=== PATIENT | female | born 1975 | race Caucasian/White ===

== ENCOUNTER 2018-08-15 21:41 | Emergency (ER) | payer MEDICARE ==
[~2018-08-15] VITALS: Ht 165.1 cm; Wt 130.7 kg
[~2018-08-15 21:41] MED LIST: DIVA500T2 PO; OLAN10TA9 PO
[2018-08-15] MEDS ORDERED: KETOROLAC 30 MG/1 ML IVPush ONE (22:00)
[2018-08-15] MEDS ORDERED: MORPHINE SULFATE 4 MG/ML, 1ML IVPush PRN (22:00)
[2018-08-15] MEDS ORDERED: CLINDAMYCIN PMX 600MG/50ML 50 ML IV ONE (22:00)
[2018-08-15] MEDS ORDERED: SODIUM CHLORIDE FLUSH 10ML SYR IVF ONE (22:00)
[2018-08-15 22:24] LABS: BASOPHILS # (AUTO) 0.11 x10^3/uL (0-0.1); BASOPHILS % (AUTO) 1 % (0-1); EOSINOPHILS # (AUTO) 0.03 x10^3/uL (0-0.4); EOSINOPHILS % (AUTO) 0 % (1-7); LYMPHOCYTES # (AUTO) 2.22 x10^3/uL (1-3.4); LYMPHOCYTES % (AUTO) 27 % (22-44); MD NO; MEAN CORPUSCULAR HEMOGLOBIN 33.3 pg (27.0-34.8); MEAN CORPUSCULAR HGB CONC 34.5 g/dL (32.4-35.8); MEAN CORPUSCULAR VOLUME 96.4 fL (80-100); MEAN PLATELET VOLUME 8.6 fL (7.4-10.4); MONOCYTES # (AUTO) 0.85 x10^3/uL (0.2-0.8); MONOCYTES % (AUTO) 10 % (2-9); NEUTROPHILS # (AUTO) 4.92 x10^3/uL (1.8-6.8); NEUTROPHILS % (AUTO) 61 % (42-75); PLATELET COUNT 190 x10^3/uL (130-400); RED BLOOD COUNT 4.05 x10^6/uL (3.82-5.3); RED CELL DISTRIBUTION WIDTH 13.3 % (9.6-15.2)
[2018-08-15] MEDS ORDERED: MORPHINE SULFATE 4 MG/ML, 1ML ONE (22:26)
[2018-08-15] MEDS ORDERED: KETOROLAC 30 MG/1 ML ONE (22:26)
[2018-08-15] MEDS ORDERED: CLINDAMYCIN PMX 600MG/50ML 50 ML ONE (22:26)
[2018-08-15 22:34] LABS: ALBUMIN 3.2 g/dL (3.4-5.0); ANION GAP 10 mmol/L (5-15); CALCIUM 8.3 mg/dL (8.5-10.1); CHLORIDE 98 mmol/L (98-107); CREATININE 0.66 mg/dL (0.55-1.02)
[2018-08-15] MEDS ORDERED: SERT100T5 PO (22:44)
[2018-08-15] MEDS ORDERED: PROLIXIN (22:44)
[2018-08-15] MEDS ORDERED: [UNRECOGNIZED DRUG - CODE] EACH EAR (22:46)
[2018-08-15] MEDS ORDERED: OMNIPAQUE 350 MG/ML, 100ML BOTTLE ONE (23:02)
[2018-08-15] MEDS ORDERED: PROPOFOL 10 MG/ML, 20ML IVPush ONE (23:30)
[2018-08-15] MEDS ORDERED: PROPOFOL 10 MG/ML, 20ML ONE (23:41)
[2018-08-16 01:28] VITALS: BP 137/99
== END 2018-08-16 01:32 | disposition home or self-care (01) ==
LOC: ED 08-16 00:02
DX: L03.111 Cellulitis of right axilla (principal); L02.411 Cutaneous abscess of right axilla
CPT/HCPCS: 10060; 36415; 73201; 80048; 82040; 83605; 84145; 85025; 87040; 87070; 87205; 96365; 96366; 96375; 99152; 99285; J1885; J2704; Q9967; 87075

== ENCOUNTER 2018-09-11 10:21 | Emergency (ER) | payer SELFPAY ==
[~2018-09-11] VITALS: Ht 172.7 cm; Wt 91.0 kg
[~2018-09-11 10:21] MED LIST changes: +PROLIXIN; +SERT100T5 PO; +[UNRECOGNIZED DRUG - CODE] EACH EAR
[2018-09-11 10:37] VITALS: BP 150/103
[2018-09-11 11:04] LABS: BASOPHILS # (AUTO) 0.03 x10^3/uL (0-0.1); BASOPHILS % (AUTO) 0 % (0-1); EOSINOPHILS # (AUTO) 0.11 x10^3/uL (0-0.4); EOSINOPHILS % (AUTO) 2 % (1-7); LYMPHOCYTES # (AUTO) 2.02 x10^3/uL (1-3.4); LYMPHOCYTES % (AUTO) 33 % (22-44); MD NO; MEAN CORPUSCULAR HEMOGLOBIN 32.5 pg (27.0-34.8); MEAN CORPUSCULAR HGB CONC 33.6 g/dL (32.4-35.8); MEAN CORPUSCULAR VOLUME 96.9 fL (80-100); MEAN PLATELET VOLUME 8.3 fL (7.4-10.4); MONOCYTES # (AUTO) 0.41 x10^3/uL (0.2-0.8); MONOCYTES % (AUTO) 7 % (2-9); NEUTROPHILS # (AUTO) 3.63 x10^3/uL (1.8-6.8); NEUTROPHILS % (AUTO) 59 % (42-75); PLATELET COUNT 217 x10^3/uL (130-400); RED BLOOD COUNT 4.89 x10^6/uL (3.82-5.3); RED CELL DISTRIBUTION WIDTH 14.2 % (9.6-15.2)
[2018-09-11 11:09] LABS: CULTURE INDICATED? YES; MICROSCOPIC INDICATED
[2018-09-11 11:16] LABS: ALANINE AMINOTRANSFERASE 17 U/L (12-78); ALBUMIN 3.4 g/dL (3.4-5.0); ANION GAP 8 mmol/L (5-15); CALCIUM 9.2 mg/dL (8.5-10.1); CHLORIDE 105 mmol/L (98-107); CREATININE 0.66 mg/dL (0.55-1.02)
[2018-09-11 11:20] LABS: ALKALINE PHOSPHATASE 66 U/L (45-117); BILIRUBIN,TOTAL 0.7 mg/dL (0.2-1.0); TOTAL PROTEIN 7.1 g/dL (6.4-8.2)
== END 2018-09-11 11:46 | disposition left against medical advice (07) ==
LOC: ED 11:40
DX: R10.30 Lower abdominal pain, unspecified (principal); F20.9 Schizophrenia, unspecified
CPT/HCPCS: 36415; 80053; 81001; 83690; 84702; 85025; 87086; 99284

== ENCOUNTER 2018-12-24 17:08 | Emergency (ER) | payer SELFPAY ==
[~2018-12-24] VITALS: Ht 170.2 cm; Wt 104.5 kg
[~2018-12-24 17:08] MED LIST changes: +SERT100T32 PO; -SERT100T5 PO
[2018-12-24 17:34] VITALS: BP 150/85
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
[2018-12-24] MEDS ORDERED: LURA40TA PO (18:05)
[2018-12-24] MEDS ORDERED: OLAN20TA3 PO ×2 (18:05)
--- NOTE | 2018-12-24 18:05 | NUR ---
Provided pt snacks and water and decaf black coffee per request. Pt appreciative.
[2018-12-24] MEDS ORDERED: OLANZAPINE 10 MG TABLET PO ONE (18:30)
[2018-12-24] MEDS ORDERED: LORazepam 1MG TABLET PO ONE (18:30)
[2018-12-24] MEDS ORDERED: OLANZAPINE 10 MG TABLET ONE ×2 (18:44)
[2018-12-24] MEDS ORDERED: LORazepam 1MG TABLET ONE (18:45)
[2018-12-24 19:08] LABS: HCG UR SG 1.006 (1.003-1.030); MICROSCOPIC AUTO
--- NOTE | 2018-12-24 19:10 | NUR ---
Provided report to LEAH Harris. All questions answered. NADN. No needs expressed at this time. All safety measures in place.
[2018-12-24 19:12] LABS: CULTURE INDICATED? YES
== END 2018-12-24 20:14 | disposition home or self-care (01) ==
LOC: ED 18:30
DX: N30.00 Acute cystitis without hematuria (principal); R30.0 Dysuria; F20.9 Schizophrenia, unspecified
CPT/HCPCS: 81001; 81025; 87086; 99283

== ENCOUNTER 2018-12-26 19:53 | Inpatient (IN) | payer MEDICARE, OTHER ==
[~2018-12-26] VITALS: Ht 167.6 cm; Wt 115.0 kg
[~2018-12-26 19:53] MED LIST changes: +LURA40TA PO; +OLAN20TA3 PO
[2018-12-26] MEDS ORDERED: LORazepam 1MG TABLET ONE (20:37)
--- NOTE | 2018-12-26 20:41 | NUR ---
PT MEDICATED PER eMAR
--- NOTE | 2018-12-26 20:48 | NUR ---
PT BROUGHT IN BY [employer], WAS FOUND SITTING IN FRONT OF SOMEONES DOOR SMOKING. PT UNABLE TO CARE FOR SELF AT THIS TIME. HX OF SCHIZOPHRENIA, NOT TAKING HER MEDS. STATES SHE IS 6 MONTHS , NO SIGNS OF NOTEDPT ASKED FOR URINE SAMPLE, STATES UNABLE TO GIVE AT THIS TIME
--- NOTE | 2018-12-26 20:52 | NUR ---
Patient is self pay and needs psych eval so telepsych consult initiated at this time.
[2018-12-26 20:53] LABS: BASOPHILS # (AUTO) 0.03 x10^3/uL (0-0.1); BASOPHILS % (AUTO) 0 % (0-1); EOSINOPHILS # (AUTO) 0.08 x10^3/uL (0-0.4); EOSINOPHILS % (AUTO) 1 % (1-7); LYMPHOCYTES # (AUTO) 1.75 x10^3/uL (1-3.4); LYMPHOCYTES % (AUTO) 14 % (22-44); MD NO; MEAN CORPUSCULAR HEMOGLOBIN 31.4 pg (27.0-34.8); MEAN CORPUSCULAR VOLUME 92.2 fL (80-100); MEAN PLATELET VOLUME 8.8 fL (7.4-10.4); MONOCYTES # (AUTO) 0.94 x10^3/uL (0.2-0.8); MONOCYTES % (AUTO) 8 % (2-9); NEUTROPHILS # (AUTO) 9.68 x10^3/uL (1.8-6.8); NEUTROPHILS % (AUTO) 78 % (42-75); PLATELET COUNT 257 x10^3/uL (130-400); RED BLOOD COUNT 4.84 x10^6/uL (3.82-5.3); RED CELL DISTRIBUTION WIDTH 16.4 % (9.6-15.2)
[2018-12-26] MEDS ORDERED: LORazepam 1MG TABLET PO ONE (21:00)
[2018-12-26 21:01] LABS: ALBUMIN 3.7 g/dL (3.4-5.0); ANION GAP 11 mmol/L (5-15); CALCIUM 9.2 mg/dL (8.5-10.1); CHLORIDE 102 mmol/L (98-107); SALICYLATE LEVEL 6.6 mg/dL (2.8-20.0)
[2018-12-26 21:04] LABS: ALANINE AMINOTRANSFERASE 16 U/L (12-78); ALKALINE PHOSPHATASE 92 U/L (45-117); BILIRUBIN,TOTAL 1.1 mg/dL (0.2-1.0); CREATININE 0.81 mg/dL (0.55-1.02); TOTAL PROTEIN 7.9 g/dL (6.4-8.2)
[2018-12-26 21:07] LABS: ACETAMINOPHEN < 2 mcg/mL (10-30)
--- NOTE | 2018-12-26 21:07 | NUR ---
TELEPSYCH MONITOR AT BS, PT STILL STATES UNABLE TO GIVEN URINE SAMPLE
[2018-12-26 21:16] LABS: CREATINE KINASE, TOTAL 1877 U/L (26-192)
[2018-12-26] MEDS ORDERED: SODIUM CHLORIDE 0.9% 1,000ML IVBOLUS ONE (21:30)
--- NOTE | 2018-12-26 21:43 | NUR ---
ATTEMPTED TO START IV ON PT. PT WAS INITIALLY CALM AND CONSENTED TO IV. WHILE LOOKING FOR AN IV SITE, THE PT ATTEMPTED TO HIT THIS RN.
--- NOTE | 2018-12-26 21:47 | NUR ---
BELONGINGS BAGGED AND LABELED, PLACED IN CLOSET
--- NOTE | 2018-12-26 21:48 | NUR ---
2 BAGS PLACED IN LOCKER.
[2018-12-26] MEDS: HEPARIN 5,000 UNITS/ML, 1ML SQ SCH (23:00)
[2018-12-26 23:22] LABS: TROPONIN I < 0.015 ng/mL (0.000-0.045)
[2018-12-27] MEDS ORDERED: LORazepam 2 MG/ML, 1ML IV PRN ×5
--- NOTE | 2018-12-27 00:01 | NUR ---
REPORT GIVEN TO BOYD LYNN FOR ROOM 360
[2018-12-27] MEDS: POTASSIUM CHLORIDE 20 MEQ, MAGNESIUM SULFATE 2 GM, THIAMINE 200 MG, MVI ADULT 10 ML, FO... IV SCH ×2 (01:44→17:26)
[2018-12-27 01:46] VITALS: BP 144/87
[2018-12-27 01:53] VITALS: BP 144/87
[2018-12-27 05:14] LABS: ANION GAP 8 mmol/L (5-15); CALCIUM 8.3 mg/dL (8.5-10.1); CHLORIDE 109 mmol/L (98-107)
[2018-12-27 05:21] LABS: CREATININE 0.55 mg/dL (0.55-1.02); TROPONIN I < 0.015 ng/mL (0.000-0.045)
[2018-12-27 05:38] LABS: BASOPHILS # (AUTO) 0.03 x10^3/uL (0-0.1); BASOPHILS % (AUTO) 0 % (0-1); EOSINOPHILS # (AUTO) 0.11 x10^3/uL (0-0.4); EOSINOPHILS % (AUTO) 1 % (1-7); LYMPHOCYTES % (AUTO) 19 % (22-44); MD NO; MEAN CORPUSCULAR HEMOGLOBIN 31.4 pg (27.0-34.8); MEAN CORPUSCULAR HGB CONC 33.7 g/dL (32.4-35.8); MEAN CORPUSCULAR VOLUME 93.2 fL (80-100); MEAN PLATELET VOLUME 9.2 fL (7.4-10.4); MONOCYTES # (AUTO) 0.75 x10^3/uL (0.2-0.8); MONOCYTES % (AUTO) 8 % (2-9); NEUTROPHILS # (AUTO) 6.32 x10^3/uL (1.8-6.8); NEUTROPHILS % (AUTO) 71 % (42-75); PLATELET COUNT 226 x10^3/uL (130-400); RED BLOOD COUNT 4.19 x10^6/uL (3.82-5.3); RED CELL DISTRIBUTION WIDTH 16.3 % (9.6-15.2)
[2018-12-27] MEDS: POTASSIUM CHLORIDE 40 MEQ in SODIUM CHLORIDE 0.9% 500 ML IV ONE ×2 (07:30→10:49)
[2018-12-27 08:00] VITALS: BP 113/61
[2018-12-27] MEDS: HEPARIN 5,000 UNITS/ML, 1ML SQ SCH ×2 (10:30→17:26)
[2018-12-27 14:00] VITALS: BP 122/75
[2018-12-27 20:10] VITALS: BP 111/65
[2018-12-28] MEDS: POTASSIUM CHLORIDE 20 MEQ, MAGNESIUM SULFATE 2 GM, THIAMINE 200 MG, MVI ADULT 10 ML, FO... IV SCH ×3 (02:16→19:58)
[2018-12-28] MEDS: HEPARIN 5,000 UNITS/ML, 1ML SQ SCH ×4 (02:30→19:58)
[2018-12-28 08:09] VITALS: BP 142/80
[2018-12-28 08:43] LABS: CULTURE INDICATED? YES; MICROSCOPIC INDICATED
[2018-12-28] MEDS: FOLIC ACID 1 MG TABLET PO SCH (09:00)
[2018-12-28] MEDS: THIAMINE 100MG TABLET PO SCH (09:00)
[2018-12-28 10:53] LABS: AMPHETAMINE SCREEN, URINE Negative (Negative); BARBITURATE SCREEN, URINE Negative (Negative); BENZODIAZEPINE SCREEN, URINE Negative (Negative); CANNABINOID SCREEN, URINE Negative (Negative); COCAINE SCREEN, URINE Negative (Negative); METHADONE SCREEN, URINE Negative (Negative); OPIATE SCREEN, URINE Negative (Negative)
[2018-12-28] MEDS: OLANZAPINE 10 MG INJ IM PRN (13:10)
[2018-12-28 19:17] VITALS: BP 114/72
[2018-12-28] MEDS: DIVALPROEX 500 MG TABLET.DR PO SCH (19:58)
[2018-12-28] MEDS: OLANZAPINE 10 MG TABLET PO SCH (19:58)
[2018-12-29] MEDS: OLANZAPINE 10 MG INJ IM PRN ×2 (02:54→14:42)
[2018-12-29] MEDS ORDERED: LORazepam 1MG TABLET PO ONE (03:30)
[2018-12-29] MEDS ORDERED: NICOTINE 21 MG/24 HR PATCH.TD24 TD ONE (03:30)
[2018-12-29] MEDS ORDERED: DIVA500T17 PO ×2 (04:51)
[2018-12-29] MEDS ORDERED: OMEP-110 PO (04:51)
[2018-12-29] MEDS ORDERED: LURA80TA PO (04:51)
[2018-12-29] MEDS ORDERED: SERT100T32 PO (04:51)
[2018-12-29] MEDS ORDERED: OLAN20TA7 PO (04:51)
[2018-12-29 07:55] VITALS: BP 119/75
[2018-12-29] MEDS: POTASSIUM CHLORIDE 20 MEQ, MAGNESIUM SULFATE 2 GM, THIAMINE 200 MG, MVI ADULT 10 ML, FO... IV SCH (08:40)
[2018-12-29] MEDS: THIAMINE 100MG TABLET PO SCH (08:59)
[2018-12-29] MEDS: FOLIC ACID 1 MG TABLET PO SCH (08:59)
[2018-12-29] MEDS: DIVALPROEX 500 MG TABLET.DR PO SCH ×2 (08:59→20:31)
[2018-12-29] MEDS: OLANZAPINE 10 MG TABLET PO SCH ×2 (09:00→20:31)
[2018-12-29 10:22] LABS: BASOPHILS # (AUTO) 0.04 x10^3/uL (0-0.1); BASOPHILS % (AUTO) 1 % (0-1); EOSINOPHILS % (AUTO) 2 % (1-7); LYMPHOCYTES # (AUTO) 1.75 x10^3/uL (1-3.4); LYMPHOCYTES % (AUTO) 30 % (22-44); MD NO; MEAN CORPUSCULAR HEMOGLOBIN 30.5 pg (27.0-34.8); MEAN CORPUSCULAR HGB CONC 32.8 g/dL (32.4-35.8); MEAN CORPUSCULAR VOLUME 92.9 fL (80-100); MEAN PLATELET VOLUME 8.6 fL (7.4-10.4); MONOCYTES # (AUTO) 0.46 x10^3/uL (0.2-0.8); MONOCYTES % (AUTO) 8 % (2-9); NEUTROPHILS # (AUTO) 3.54 x10^3/uL (1.8-6.8); NEUTROPHILS % (AUTO) 60 % (42-75); PLATELET COUNT 202 x10^3/uL (130-400); RED BLOOD COUNT 3.92 x10^6/uL (3.82-5.3); RED CELL DISTRIBUTION WIDTH 15.2 % (9.6-15.2)
[2018-12-29 10:25] LABS: ALANINE AMINOTRANSFERASE 11 U/L (12-78); ALBUMIN 2.7 g/dL (3.4-5.0); ANION GAP 5 mmol/L (5-15); CALCIUM 8.5 mg/dL (8.5-10.1); CHLORIDE 111 mmol/L (98-107); CREATININE 0.71 mg/dL (0.55-1.02)
[2018-12-29 10:27] LABS: ALKALINE PHOSPHATASE 60 U/L (45-117); BILIRUBIN,TOTAL 0.6 mg/dL (0.2-1.0)
[2018-12-29] MEDS: HEPARIN 5,000 UNITS/ML, 1ML SQ SCH ×2 (10:30→18:30)
[2018-12-29] MEDS ORDERED: POTASSIUM CHLORIDE 20 MEQ TAB.ER.PRT PO ONE (12:30)
[2018-12-29] MEDS: CEFDINIR 300 MG CAPSULE PO SCH ×2 (12:36→20:31)
[2018-12-29] MEDS: LORazepam 1MG TABLET PO PRN (12:37)
[2018-12-29 12:39] VITALS: BP 101/55
[2018-12-29 15:31] VITALS: BP 110/67
[2018-12-29 16:00] VITALS: BP 119/67
[2018-12-29 20:36] VITALS: BP 109/61
[2018-12-30] MEDS: HEPARIN 5,000 UNITS/ML, 1ML SQ SCH ×3 (05:49→22:00)
[2018-12-30 08:00] VITALS: BP 95/57
[2018-12-30] MEDS: DIVALPROEX 500 MG TABLET.DR PO SCH (08:11)
[2018-12-30] MEDS: FOLIC ACID 1 MG TABLET PO SCH (08:12)
[2018-12-30] MEDS: THIAMINE 100MG TABLET PO SCH (08:12)
[2018-12-30] MEDS: CEFDINIR 300 MG CAPSULE PO SCH ×2 (08:12→20:20)
[2018-12-30] MEDS: OLANZAPINE 10 MG TABLET PO SCH ×2 (08:12→20:22)
[2018-12-30] MEDS: LORazepam 1MG TABLET PO PRN ×2 (11:59→23:23)
[2018-12-30] MEDS: OLANZAPINE 10 MG INJ IM PRN (12:26)
[2018-12-30] MEDS: DIVALPROEX 500 MG TAB.ER.24H PO SCH (20:21)
[2018-12-30 20:24] VITALS: BP 125/79
[2018-12-31 07:41] VITALS: BP 118/79
[2018-12-31] MEDS: HEPARIN 5,000 UNITS/ML, 1ML SQ SCH ×3 (08:00→20:00)
[2018-12-31] MEDS: DIVALPROEX 500 MG TAB.ER.24H PO SCH ×2 (10:22→20:00)
[2018-12-31] MEDS: FOLIC ACID 1 MG TABLET PO SCH (10:23)
[2018-12-31] MEDS: CEFDINIR 300 MG CAPSULE PO SCH ×2 (10:23→20:00)
[2018-12-31] MEDS: OLANZAPINE 10 MG TABLET PO SCH ×2 (10:23→20:00)
[2018-12-31] MEDS: THIAMINE 100MG TABLET PO SCH (10:23)
[2018-12-31] MEDS: LORazepam 1MG TABLET PO PRN (15:39)
[2018-12-31 19:36] VITALS: BP 125/85
[2019-01-01] MEDS: HEPARIN 5,000 UNITS/ML, 1ML SQ SCH ×3 (06:00→22:00)
[2019-01-01] MEDS: CEFDINIR 300 MG CAPSULE PO SCH ×2 (10:11→19:48)
[2019-01-01] MEDS: OLANZAPINE 10 MG TABLET PO SCH ×2 (10:11→19:49)
[2019-01-01] MEDS: FOLIC ACID 1 MG TABLET PO SCH (10:11)
[2019-01-01] MEDS: DIVALPROEX 500 MG TAB.ER.24H PO SCH ×2 (10:12→19:49)
[2019-01-01] MEDS: THIAMINE 100MG TABLET PO SCH (10:12)
[2019-01-01 10:20] VITALS: BP 109/71
[2019-01-01] MEDS: LORazepam 1MG TABLET PO PRN ×2 (11:04→19:49)
[2019-01-01 19:09] VITALS: BP 120/76
[2019-01-02] MEDS: HEPARIN 5,000 UNITS/ML, 1ML SQ SCH ×3 (06:00→21:27)
[2019-01-02 07:50] VITALS: BP 97/65
[2019-01-02] MEDS: THIAMINE 100MG TABLET PO SCH (07:50)
[2019-01-02] MEDS: CEFDINIR 300 MG CAPSULE PO SCH ×2 (07:50→20:02)
[2019-01-02] MEDS: FOLIC ACID 1 MG TABLET PO SCH (07:50)
[2019-01-02] MEDS: DIVALPROEX 500 MG TAB.ER.24H PO SCH ×2 (07:51→20:02)
[2019-01-02] MEDS: OLANZAPINE 10 MG TABLET PO SCH ×2 (07:51→20:02)
[2019-01-02] MEDS: LORazepam 1MG TABLET PO PRN ×3 (12:43→20:38)
[2019-01-02] MEDS: OLANZAPINE 10 MG INJ IM PRN (16:08)
[2019-01-02 20:00] VITALS: BP 114/81
[2019-01-03] MEDS: LORazepam 1MG TABLET PO PRN ×3 (04:12→16:48)
[2019-01-03] MEDS: ENOXAPARIN 40 MG/0.4 ML SQ SCH (07:00)
[2019-01-03 07:26] VITALS: BP 93/63
[2019-01-03] MEDS: OLANZAPINE 10 MG TABLET PO SCH ×2 (08:18→20:02)
[2019-01-03] MEDS: DIVALPROEX 500 MG TAB.ER.24H PO SCH ×2 (08:18→20:01)
[2019-01-03] MEDS: THIAMINE 100MG TABLET PO SCH (08:18)
[2019-01-03] MEDS: FOLIC ACID 1 MG TABLET PO SCH (08:19)
[2019-01-03 20:07] VITALS: BP 118/78
[2019-01-04] MEDS: LORazepam 1MG TABLET PO PRN ×4 (00:19→22:59)
[2019-01-04 07:51] VITALS: BP 106/71
[2019-01-04] MEDS: FOLIC ACID 1 MG TABLET PO SCH (08:09)
[2019-01-04] MEDS: DIVALPROEX 500 MG TAB.ER.24H PO SCH ×2 (08:09→19:56)
[2019-01-04] MEDS: THIAMINE 100MG TABLET PO SCH (08:09)
[2019-01-04] MEDS: OLANZAPINE 10 MG TABLET PO SCH ×2 (08:10→19:56)
[2019-01-04] MEDS: ENOXAPARIN 40 MG/0.4 ML SQ SCH (08:17)
[2019-01-04] MEDS: ACETAMINOPHEN 325 MG TABLET PO PRN (17:15)
[2019-01-04 19:28] VITALS: BP 110/69
[2019-01-05] MEDS: LORazepam 1MG TABLET PO PRN ×3 (03:46→22:59)
[2019-01-05] MEDS: ENOXAPARIN 40 MG/0.4 ML SQ SCH (07:00)
[2019-01-05 08:00] VITALS: BP 115/77
[2019-01-05] MEDS: DIVALPROEX 500 MG TAB.ER.24H PO SCH ×2 (08:18→19:58)
[2019-01-05] MEDS: FOLIC ACID 1 MG TABLET PO SCH (08:18)
[2019-01-05] MEDS: OLANZAPINE 10 MG TABLET PO SCH ×2 (08:18→19:59)
[2019-01-05] MEDS: THIAMINE 100MG TABLET PO SCH (08:18)
[2019-01-05] MEDS: ACETAMINOPHEN 325 MG TABLET PO PRN (12:51)
[2019-01-05 20:00] VITALS: BP 119/84
[2019-01-06] MEDS: LORazepam 1MG TABLET PO PRN ×2 (03:20→16:13)
[2019-01-06] MEDS: ENOXAPARIN 40 MG/0.4 ML SQ SCH (07:00)
[2019-01-06 08:40] VITALS: BP 107/73
[2019-01-06] MEDS: FOLIC ACID 1 MG TABLET PO SCH (09:03)
[2019-01-06] MEDS: DIVALPROEX 500 MG TAB.ER.24H PO SCH ×2 (09:03→20:14)
[2019-01-06] MEDS: THIAMINE 100MG TABLET PO SCH (09:03)
[2019-01-06] MEDS: OLANZAPINE 10 MG TABLET PO SCH ×2 (09:04→20:13)
[2019-01-06 19:11] VITALS: BP 108/77
[2019-01-07 07:40] VITALS: BP 96/63
[2019-01-07] MEDS: DIVALPROEX 500 MG TAB.ER.24H PO SCH ×2 (08:08→20:16)
[2019-01-07] MEDS: FOLIC ACID 1 MG TABLET PO SCH (08:08)
[2019-01-07] MEDS: THIAMINE 100MG TABLET PO SCH (08:08)
[2019-01-07] MEDS: OLANZAPINE 10 MG TABLET PO SCH ×2 (08:08→20:17)
[2019-01-07] MEDS: ENOXAPARIN 40 MG/0.4 ML SQ SCH (08:19)
[2019-01-07] MEDS: LORazepam 1MG TABLET PO PRN ×3 (12:45→20:17)
[2019-01-07] MEDS: ACETAMINOPHEN 325 MG TABLET PO PRN ×2 (18:36→22:02)
[2019-01-08] MEDS: LORazepam 1MG TABLET PO PRN ×4 (00:41→20:24)
[2019-01-08] MEDS: ACETAMINOPHEN 325 MG TABLET PO PRN (03:51)
[2019-01-08 07:59] VITALS: BP 136/84
[2019-01-08] MEDS: DIVALPROEX 500 MG TAB.ER.24H PO SCH ×2 (08:22→20:25)
[2019-01-08] MEDS: OLANZAPINE 10 MG TABLET PO SCH ×2 (08:23→20:31)
[2019-01-08] MEDS: THIAMINE 100MG TABLET PO SCH (08:23)
[2019-01-08] MEDS: FOLIC ACID 1 MG TABLET PO SCH (08:23)
[2019-01-08] MEDS: ENOXAPARIN 40 MG/0.4 ML SQ SCH (08:29)
[2019-01-08 19:23] VITALS: BP 134/88
[2019-01-08] MEDS ORDERED: OLANZAPINE 5 MG TABLET ONE (20:22)
[2019-01-09] MEDS: LORazepam 1MG TABLET PO PRN ×2 (01:44→15:33)
[2019-01-09] MEDS: ENOXAPARIN 40 MG/0.4 ML SQ SCH (07:00)
[2019-01-09] MEDS ORDERED: OLANZAPINE 5 MG TABLET ONE (07:49)
[2019-01-09] MEDS: DIVALPROEX 500 MG TAB.ER.24H PO SCH ×2 (07:50→20:46)
[2019-01-09] MEDS: FOLIC ACID 1 MG TABLET PO SCH (07:50)
[2019-01-09] MEDS: THIAMINE 100MG TABLET PO SCH (07:50)
[2019-01-09] MEDS: OLANZAPINE 10 MG TABLET PO SCH ×2 (08:14→20:46)
[2019-01-09 08:15] VITALS: BP 107/72
[2019-01-09] MEDS: OLANZAPINE 10 MG INJ IM PRN ×2 (11:00→17:15)
[2019-01-09] MEDS ORDERED: LORazepam 2 MG/ML, 1ML IM PRN (17:30)
[2019-01-09 19:41] VITALS: BP 113/80
[2019-01-10] MEDS: LORazepam 1MG TABLET PO PRN (01:04)
[2019-01-10] MEDS ORDERED: LORazepam 2 MG/ML, 1ML IM ONE (03:30)
[2019-01-10] MEDS: ENOXAPARIN 40 MG/0.4 ML SQ SCH (07:00)
[2019-01-10] MEDS: DIVALPROEX 500 MG TAB.ER.24H PO SCH ×2 (08:18→21:25)
[2019-01-10] MEDS: THIAMINE 100MG TABLET PO SCH (08:19)
[2019-01-10] MEDS: OLANZAPINE 10 MG TABLET PO SCH ×2 (08:19→21:26)
[2019-01-10] MEDS: FOLIC ACID 1 MG TABLET PO SCH (08:19)
[2019-01-10 08:20] VITALS: BP 111/76
[2019-01-10 21:00] VITALS: BP 109/84
[2019-01-10] MEDS: ACETAMINOPHEN 325 MG TABLET PO PRN (23:13)
[2019-01-11] MEDS: ENOXAPARIN 40 MG/0.4 ML SQ SCH (07:00)
[2019-01-11 08:00] VITALS: BP 129/81
[2019-01-11] MEDS: THIAMINE 100MG TABLET PO SCH (09:00)
[2019-01-11] MEDS: DIVALPROEX 500 MG TAB.ER.24H PO SCH ×2 (09:00→19:32)
[2019-01-11] MEDS: FOLIC ACID 1 MG TABLET PO SCH (09:01)
[2019-01-11] MEDS: OLANZAPINE 5 MG TABLET PO SCH ×2 (09:01→19:33)
[2019-01-11 09:24] LABS: CREATININE 0.85 mg/dL (0.55-1.02)
[2019-01-11] MEDS: LORazepam 1MG TABLET PO PRN (19:31)
[2019-01-11 20:00] VITALS: BP 119/79
[2019-01-11] MEDS: ACETAMINOPHEN 325 MG TABLET PO PRN (20:03)
[2019-01-12] MEDS: LORazepam 1MG TABLET PO PRN ×3 (02:54→21:18)
[2019-01-12] MEDS: ENOXAPARIN 40 MG/0.4 ML SQ SCH (07:00)
[2019-01-12 07:51] VITALS: BP 91/55
[2019-01-12] MEDS: DIVALPROEX 500 MG TAB.ER.24H PO SCH ×2 (07:59→21:17)
[2019-01-12] MEDS: THIAMINE 100MG TABLET PO SCH (07:59)
[2019-01-12] MEDS: OLANZAPINE 5 MG TABLET PO SCH ×2 (08:00→21:17)
[2019-01-12] MEDS: FOLIC ACID 1 MG TABLET PO SCH (08:00)
[2019-01-12 20:21] VITALS: BP 105/73
[2019-01-12] MEDS: ACETAMINOPHEN 325 MG TABLET PO PRN (23:22)
[2019-01-13] MEDS: ENOXAPARIN 40 MG/0.4 ML SQ SCH (07:00)
[2019-01-13 08:00] VITALS: BP 112/77
[2019-01-13] MEDS: FOLIC ACID 1 MG TABLET PO SCH (09:26)
[2019-01-13] MEDS: DIVALPROEX 500 MG TAB.ER.24H PO SCH ×2 (09:26→20:06)
[2019-01-13] MEDS: THIAMINE 100MG TABLET PO SCH (09:26)
[2019-01-13] MEDS: OLANZAPINE 5 MG TABLET PO SCH ×2 (09:27→20:05)
[2019-01-13] MEDS: LORazepam 1MG TABLET PO PRN ×2 (12:47→20:05)
[2019-01-13 20:00] VITALS: BP 100/61
[2019-01-13] MEDS: OLANZAPINE 10 MG INJ IM PRN (21:53)
[2019-01-13 22:35] VITALS: BP 116/81
[2019-01-14] MEDS: LORazepam 1MG TABLET PO PRN (05:28)
[2019-01-14] MEDS: ENOXAPARIN 40 MG/0.4 ML SQ SCH (07:00)
[2019-01-14 07:48] VITALS: BP 104/70
[2019-01-14 08:23] LABS: CREATININE 0.89 mg/dL (0.55-1.02)
[2019-01-14] MEDS: FOLIC ACID 1 MG TABLET PO SCH (08:41)
[2019-01-14] MEDS: THIAMINE 100MG TABLET PO SCH (08:41)
[2019-01-14] MEDS: DIVALPROEX 500 MG TAB.ER.24H PO SCH (08:41)
[2019-01-14] MEDS: OLANZAPINE 5 MG TABLET PO SCH (08:42)
[2019-01-14] MEDS ORDERED: OLAN5TAB9 PO (11:17)
[2019-01-14] MEDS ORDERED: CHLO25TA4 PO (11:17)
== END 2019-01-14 11:20 | DRG 871 ==
LOC: ED 20:37 → OBSVTOIN 22:16 → EDIP 22:16 → 3NE 12-27 00:36 → 2N 12-29 14:33
PROVIDERS: ADMIT Internal Medicine; ATTEND Internal Medicine
DX: A41.9 Sepsis, unspecified organism (principal); G93.41 Metabolic encephalopathy; J96.00 Acute respiratory failure, unspecified whether with hypoxia or hypercapnia; N39.0 Urinary tract infection, site not specified; M62.82 Rhabdomyolysis; R74.8 Abnormal levels of other serum enzymes; E87.6 Hypokalemia; F10.10 Alcohol abuse, uncomplicated; F15.10 Other stimulant abuse, uncomplicated; F60.3 Borderline personality disorder; Z53.20 Procedure and treatment not carried out because of patient's decision for unspecified reasons; Z65.3 Problems related to other legal circumstances; Z78.1 Physical restraint status; Z91.14 Patient's other noncompliance with medication regimen; F41.9 Anxiety disorder, unspecified; F25.0 Schizoaffective disorder, bipolar type; Z88.8 Allergy status to other drugs, medicaments and biological substances
CPT/HCPCS: 36415; 70450; 71045; 80048; 80053; 80164; 80307; 80329; 81001; 82550; 82565; 83735; 84443; 84484; 84703; 85025; 87040; 87077; 87086; 87186; 93005; 99285; G0378; J1644; J3411; J3475; J3480; J7042; G0480; J2060; J7030; J7040

== ENCOUNTER 2019-05-10 03:37 | Emergency (ER) | payer SELFPAY ==
[~2019-05-10] VITALS: Ht 172.7 cm; Wt 121.5 kg
[~2019-05-10 03:37] MED LIST changes: +CHLO25TA4 PO; +DIVA500T17 PO; +LURA80TA PO; +OLAN20TA7 PO; +OLAN5TAB9 PO; +OMEP-110 PO
[2019-05-10 03:44] VITALS: BP 154/97
--- NOTE | 2019-05-10 03:57 | NUR ---
PT TRIAGED AND D/C WITH TRIAGE PER POWDER NIPPER AND AFTER EXAMINATION BY DR. SHAFFER. PT DEMANDS "TURKEY SANDWICH WITH CHEESE". OFFERED CRACKERS AND PEANUT BUTTER, BUT PT REFUSES. PT PROVIDED WITH BUS PASS FOR SAFE D/C HOME, AND SECURITY ESCORTED PT TO LOBBY AND OFF OF PROPERTY.
== END 2019-05-10 04:01 | disposition home or self-care (01) ==
LOC: ED 03:50 → MERGE 03:50 → ED 04:01
DX: F45.8 Other somatoform disorders (principal); F17.200 Nicotine dependence, unspecified, uncomplicated
CPT/HCPCS: 99284

== ENCOUNTER 2019-05-10 06:21 | Emergency (ER) | payer SELFPAY ==
[~2019-05-10] VITALS: Ht 172.7 cm; Wt 121.4 kg
[2019-05-10] MEDS ORDERED: MAALOX/HYOSCYAMINE/LIDOCAINE 45 ML BTL PO ONE (07:00)
[2019-05-10] MEDS ORDERED: ONDANSETRON ODT 4 MG PO ONE (07:00)
[2019-05-10 07:03] LABS: BASOPHILS # (AUTO) 0.04 x10^3/uL (0-0.1); BASOPHILS % (AUTO) 0 % (0-1); EOSINOPHILS % (AUTO) 0 % (1-7); LYMPHOCYTES # (AUTO) 1.88 x10^3/uL (1-3.4); LYMPHOCYTES % (AUTO) 21 % (22-44); MD NO; MEAN CORPUSCULAR HEMOGLOBIN 30.1 pg (27.0-34.8); MEAN CORPUSCULAR HGB CONC 33.3 g/dL (32.4-35.8); MEAN CORPUSCULAR VOLUME 90.3 fL (80-100); MEAN PLATELET VOLUME 10.8 fL (7.4-10.4); MONOCYTES # (AUTO) 0.68 x10^3/uL (0.2-0.8); MONOCYTES % (AUTO) 8 % (2-9); NEUTROPHILS # (AUTO) 6.41 x10^3/uL (1.8-6.8); NEUTROPHILS % (AUTO) 71 % (42-75); PLATELET COUNT 126 x10^3/uL (130-400); RED BLOOD COUNT 4.99 x10^6/uL (3.82-5.3); RED CELL DISTRIBUTION WIDTH 13.9 % (9.6-15.2)
[2019-05-10 07:16] LABS: ALANINE AMINOTRANSFERASE 16 U/L (12-78); ALBUMIN 3.6 g/dL (3.4-5.0); ANION GAP 9 mmol/L (5-15); CHLORIDE 105 mmol/L (98-107); CREATININE 0.94 mg/dL (0.55-1.02)
--- NOTE | 2019-05-10 07:16 | NUR ---
FIRST CONTACT WITH PT. PT STATES "I DON'T FEEL GOOD, I'M HOMELESS, AND I'M OUT OF CIGARETTES". PER EMS, PT TOLD THEM THAT SHE WAS SICK BECAUSE SHE SMOKED CIGARETTES ALL MORNING. PT SEEN HERE THIS MORNING PREVIOUSLY AND D/C WITH SECURITY. PT ALSO C/O N/DZY AT THIS TIME. PT'S AOX4. RESPS EVEN AND UNLABORED.
--- NOTE | 2019-05-10 07:18 | NUR ---
REPORT GIVEN TO JOSE ANGEL LYNN.
[2019-05-10 07:20] LABS: ALKALINE PHOSPHATASE 78 U/L (45-117); BILIRUBIN,TOTAL 0.8 mg/dL (0.2-1.0)
[2019-05-10] MEDS ORDERED: ONDANSETRON ODT 4 MG ONE (07:21)
[2019-05-10] MEDS ORDERED: MAALOX/HYOSCYAMINE/LIDOCAINE 45 ML BTL ONE (07:21)
[2019-05-10 08:23] VITALS: BP 160/105
--- NOTE | 2019-05-10 08:25 | NUR ---
Patient given discharge instructions and they have confirmed that they understand the instructions. Patient ambulatory with steady gait. Pt left with all personal belongings, dc paperwork, and encouraged to return to ED if symptoms worsen or change.
== END 2019-05-10 08:28 | disposition home or self-care (01) ==
LOC: MERGE 07:11 → ED 07:11
DX: R11.2 Nausea with vomiting, unspecified (principal); F17.200 Nicotine dependence, unspecified, uncomplicated
CPT/HCPCS: 36415; 80053; 84703; 85025; 99283; Q0162

== ENCOUNTER 2019-05-19 23:38 | Emergency (ER) | payer MEDICARE, OTHER ==
[~2019-05-19] VITALS: Ht 167.6 cm; Wt 109.1 kg
[2019-05-19 23:40] VITALS: BP 129/88
== END 2019-05-20 00:18 | disposition home or self-care (01) ==
LOC: MERGE 05-20 00:10 → ED 05-20 00:10
DX: F41.1 Generalized anxiety disorder (principal); F60.9 Personality disorder, unspecified
CPT/HCPCS: 99284

== ENCOUNTER 2019-05-20 06:56 | Inpatient (IN) | payer MEDICAID, MEDICARE, OTHER ==
[~2019-05-20] VITALS: Ht 172.7 cm; Wt 90.9 kg
[~2019-05-20 06:56] MED LIST changes: +OLAN20TA14 PO; -OLAN20TA7 PO
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
--- NOTE | 2019-05-20 07:15 | NUR ---
1 BAG OF BELONGINGS PLACED IN PSYCH LOCKER
--- NOTE | 2019-05-20 07:15 | NUR ---
SITTER AT BEDSIDE
[2019-05-20] MEDS ORDERED: HALOPERIDOL 5 MG/ML ONE (07:36)
[2019-05-20 07:41] LABS: AMPHETAMINE SCREEN, URINE Negative (Negative); BARBITURATE SCREEN, URINE Negative (Negative); BENZODIAZEPINE SCREEN, URINE Negative (Negative); CANNABINOID SCREEN, URINE Negative (Negative); COCAINE SCREEN, URINE Negative (Negative); METHADONE SCREEN, URINE Negative (Negative); OPIATE SCREEN, URINE Negative (Negative)
--- NOTE | 2019-05-20 07:56 | NUR ---
LAB ATTEMPTED TO DRAW LABS X2, PT REFUSING AND YELLING AT LAB, TELLING THEM TO FUCK OFF AND THAT THEY'RE "IDIOTS". PT REFUSING TO HAVE LAB ATTEMPT TO DRAW LABS AGAIN AT THIS TIME.
[2019-05-20] MEDS ORDERED: HALOPERIDOL 5 MG/ML IM PRN (08:00)
--- NOTE | 2019-05-20 08:12 | NUR ---
PT REMOVED FROM HARD RESTRAINTS AT 0812, PT CALM AND COOPERATIVE AT THIS TIME
--- NOTE | 2019-05-20 08:51 | NUR ---
PT AGREEING TO HAVE LABS DRAWN. LAB AT BEDSIDE
[2019-05-20 09:06] LABS: BASOPHILS # (AUTO) 0.02 x10^3/uL (0-0.1); BASOPHILS % (AUTO) 0 % (0-1); EOSINOPHILS % (AUTO) 0 % (1-7); LYMPHOCYTES # (AUTO) 1.64 x10^3/uL (1-3.4); LYMPHOCYTES % (AUTO) 17 % (22-44); MD NO; MEAN CORPUSCULAR HEMOGLOBIN 30.4 pg (27.0-34.8); MEAN CORPUSCULAR HGB CONC 32.6 g/dL (32.4-35.8); MEAN PLATELET VOLUME 8.5 fL (7.4-10.4); MONOCYTES % (AUTO) 3 % (2-9); NEUTROPHILS # (AUTO) 7.91 x10^3/uL (1.8-6.8); NEUTROPHILS % (AUTO) 80 % (42-75); PLATELET COUNT 215 x10^3/uL (130-400); RED CELL DISTRIBUTION WIDTH 14.7 % (9.6-15.2)
[2019-05-20 09:27] LABS: ALBUMIN 3.8 g/dL (3.4-5.0); ANION GAP 7 mmol/L (5-15); CALCIUM 9.1 mg/dL (8.5-10.1); CHLORIDE 105 mmol/L (98-107); CREATININE 0.85 mg/dL (0.55-1.02); SALICYLATE LEVEL 2.6 mg/dL (2.8-20.0)
--- NOTE | 2019-05-20 09:50 | NUR ---
PT PROVIDED BREAKFAST TRAY. PT COOPERATIVE AT THIS TIME HOWEVER CONTINUES TO YELL AT RN AND STAFF. PT RESTING IN [facility] [address]
--- NOTE | 2019-05-20 10:48 | NUR ---
2n RN AT BEDSIDE TO EVAL PT
--- NOTE | 2019-05-20 10:49 | NUR ---
PT AMBULATED TO RESTROOM WITH STEADY GAIT
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
--- NOTE | 2019-05-20 11:48 | NUR ---
REPORT TO TELEPSYCH
--- NOTE | 2019-05-20 12:08 | NUR ---
PT GIVEN LUNCH TRAY. TELEPSYCH ROBOT IN ROOM
--- NOTE | 2019-05-20 12:46 | NUR ---
report to lety shin
[2019-05-20 13:06] VITALS: BP 121/83
[2019-05-20 19:00] VITALS: BP 114/68
[2019-05-20] MEDS ORDERED: DIVALPROEX 500 MG TAB.ER.24H PO SCH (21:00)
[2019-05-20] MEDS: OLANZAPINE 5 MG TABLET PO SCH (21:00)
[2019-05-21] MEDS ORDERED: DIVALPROEX 500 MG TAB.ER.24H PO SCH (06:00)
[2019-05-21] MEDS: DIVALPROEX 500 MG TAB.ER.24H PO SCH ×2 (08:00→09:40)
[2019-05-21] MEDS: OMEPRAZOLE 20 MG CAPSULE.DR PO SCH ×2 (09:00→09:38)
[2019-05-21 09:35] VITALS: BP 120/83
[2019-05-21] MEDS: OLANZAPINE 5 MG TABLET PO SCH (09:39)
== END 2019-05-21 18:18 | DRG 885 ==
LOC: ED 08:56 → EDIP 11:19 → MERGE 11:19 → 2N 13:03
PROVIDERS: ADMIT Family Medicine; ATTEND Family Medicine
DX: F25.0 Schizoaffective disorder, bipolar type (principal); F23 Brief psychotic disorder; F41.9 Anxiety disorder, unspecified; F60.3 Borderline personality disorder; Z59.0 Homelessness; Z72.0 Tobacco use; Z78.1 Physical restraint status; Z91.14 Patient's other noncompliance with medication regimen; Z91.83 Wandering in diseases classified elsewhere
CPT/HCPCS: 36415; 80048; 80307; 82040; 84703; 85025; 96372; 99284; G0378; J1630

== ENCOUNTER 2020-07-02 00:02 | Emergency (ER) | payer MEDICAID, MEDICARE ==
[~2020-07-02] VITALS: Ht 170.2 cm; Wt 125.0 kg
--- NOTE | 2020-07-02 00:25 | NUR ---
Arrives via [facility] from detention s/p unwitnessed fall. Per EMS, pt was started on 1 mg PO Ativan TID yesterday, medicated as per script. Pt has increased weakness/lethargy. Pt was unable to ambulate independently, pt states she was able to lower herself to ground. A&o x4, but significant lethargy and slight slur noted. Neurologically in tact otherwise, see neuro assessment for additional details. JESS. Able to turn and pivot from EMS stretcher to ED stretcher with 1 staff assist. O2 found to be in mid 80s RA, pt refuses O2 for this RN and for EMS. Denies chest pain. Denies SOB. Denies abd pain. Denies fever/chills. States baseline cough d/t smoking 1/2 [employer]. MD at bedside upon pt arrival to ED
--- NOTE | 2020-07-02 01:15 | NUR ---
Break RN: laborer chicken [employer] at bedside for blood draw.
[2020-07-02 01:27] LABS: BASOPHILS # (AUTO) 0.02 x10^3/uL (0-0.1); BASOPHILS % (AUTO) 0 % (0-1); EOSINOPHILS % (AUTO) 0 % (1-7); LYMPHOCYTES # (AUTO) 1.47 x10^3/uL (1-3.4); LYMPHOCYTES % (AUTO) 21 % (22-44); MD NO; MEAN CORPUSCULAR HEMOGLOBIN 27.4 pg (27.0-34.8); MEAN CORPUSCULAR HGB CONC 31.8 g/dL (32.4-35.8); MEAN CORPUSCULAR VOLUME 86.3 fL (80-100); MEAN PLATELET VOLUME 8.8 fL (7.4-10.4); MONOCYTES # (AUTO) 0.61 x10^3/uL (0.2-0.8); MONOCYTES % (AUTO) 9 % (2-9); NEUTROPHILS # (AUTO) 4.97 x10^3/uL (1.8-6.8); NEUTROPHILS % (AUTO) 70 % (42-75); PLATELET COUNT 276 x10^3/uL (130-400); RED BLOOD COUNT 4.06 x10^6/uL (3.82-5.3); RED CELL DISTRIBUTION WIDTH 16.4 % (9.6-15.2)
[2020-07-02 01:37] LABS: ALANINE AMINOTRANSFERASE 11 U/L (12-78); ALBUMIN 3.1 g/dL (3.4-5.0); ANION GAP 5 mmol/L (5-15); CALCIUM 8.3 mg/dL (8.5-10.1); CHLORIDE 102 mmol/L (98-107); CREATININE 0.84 mg/dL (0.55-1.02)
[2020-07-02 01:41] LABS: ALKALINE PHOSPHATASE 67 U/L (45-117); BILIRUBIN,TOTAL 0.4 mg/dL (0.2-1.0); TOTAL PROTEIN 6.8 g/dL (6.4-8.2); TROPONIN I < 0.015 ng/mL (0.000-0.045)
--- NOTE | 2020-07-02 03:28 | NUR ---
Pt incontinent of urine. Significant amount of urine noted to floor. Changed linens and cleaned pt with wipes. Provided new hospital gown. States she was too weak to ambulate to bathroom, unable to express reasoning for not using call johnson. Call johnson placed back within reach, teaching provided re: use of call johnson
[2020-07-02 05:07] VITALS: BP 117/62
--- NOTE | 2020-07-02 05:07 | NUR ---
Pt more alert, answering questions appropriately. States she wants to go home. States she feels comfortable ambulating independently and staff at detention will assist her into facility upon arrival. Plan for cab voucher home after ambulation trial. aware
--- NOTE | 2020-07-02 05:36 | NUR ---
Pt refused d/c VS. Provided with hospital gowns to leave as personal clothes were soiled. Provided cab voucher back to jail at [address] in [place]. Pt states jail employees will let her in upon arrival. States she wants to go home and will not stay. Ambulated independently, steady gait. Pt verbalizes understanding for f/u with PCP and to d/c Ativan TID
== END 2020-07-03 05:39 | disposition home or self-care (01) ==
LOC: ED 02:34
DX: M79.606 Pain in leg, unspecified (principal); T42.4X5A Adverse effect of benzodiazepines, initial encounter; R53.1 Weakness; R53.83 Other fatigue; F17.200 Nicotine dependence, unspecified, uncomplicated; W01.0XXA Fall on same level from slipping, tripping and stumbling without subsequent striking against object, initial encounter; Y93.89 Activity, other specified; Y92.89 Other specified places as the place of occurrence of the external cause; Y99.8 Other external cause status
CPT/HCPCS: 36415; 71045; 80053; 80307; 83880; 84484; 85025; 93005; 99285

== ENCOUNTER 2020-08-11 21:39 | Emergency (ER) | payer MEDICARE ==
[~2020-08-11] VITALS: Ht 172.7 cm; Wt 154.9 kg
[~2020-08-11 21:39] MED LIST changes: +CEFD300C37 PO
[2020-08-11 21:41] VITALS: BP 166/100
--- NOTE | 2020-08-11 23:21 | NUR ---
Pt given water to help with providing urine sample. Unable to urinate at this time.
[2020-08-12 00:29] LABS: HCG UR SG 1.013 (1.003-1.030)
[2020-08-12 00:55] LABS: MICROSCOPIC INDICATED
[2020-08-12] MEDS ORDERED: FOSFOMYCIN 3 GM PACKET ONE (01:13)
[2020-08-12] MEDS ORDERED: FOSFOMYCIN 3 GM PACKET PO ONE (01:30)
== END 2020-08-12 01:40 | disposition home or self-care (01) ==
LOC: ED 22:30
DX: O99.343 Other mental disorders complicating pregnancy, third trimester (principal); O23.13 Infections of bladder in pregnancy, third trimester; F22 Delusional disorders; F17.210 Nicotine dependence, cigarettes, uncomplicated; I50.9 Heart failure, unspecified; Z3A.32 32 weeks gestation of pregnancy
CPT/HCPCS: 81001; 81025; 87086; 99283; 99406

== ENCOUNTER 2020-09-24 13:26 | Emergency (ER) | payer MEDICARE ==
[~2020-09-24] VITALS: Ht 167.6 cm; Wt 91.0 kg
--- NOTE | 2020-09-24 14:24 | NUR ---
belongings secured in locker. room secured for l2k hold criteria. pt given coffee per request.
--- NOTE | 2020-09-24 15:19 | NUR ---
PT REFUSING LABS. AGITATES EASILY AND DUBIOUS TRUSTWORTHY.
[2020-09-24 16:14] LABS: BASOPHILS % (AUTO) 1 % (0-1); EOSINOPHILS % (AUTO) 0 % (1-7); LYMPHOCYTES % (AUTO) 30 % (22-44); MEAN CORPUSCULAR HEMOGLOBIN 27.8 pg (27.0-34.8); MEAN CORPUSCULAR HGB CONC 33.1 g/dL (32.4-35.8); MEAN PLATELET VOLUME 9.9 fL (7.4-10.4); MONOCYTES % (AUTO) 8 % (2-9); NEUTROPHILS % (AUTO) 60 % (42-75); PLATELET COUNT 157 x10^3/uL (130-400); RED BLOOD COUNT 5.27 x10^6/uL (3.82-5.3); RED CELL DISTRIBUTION WIDTH 18.6 % (9.6-15.2)
[2020-09-24 16:15] LABS: MD NO
[2020-09-24 16:16] LABS: AMPHETAMINE SCREEN, URINE Negative (Negative); BARBITURATE SCREEN, URINE Negative (Negative); BENZODIAZEPINE SCREEN, URINE Negative (Negative); CANNABINOID SCREEN, URINE Negative (Negative); COCAINE SCREEN, URINE Negative (Negative); METHADONE SCREEN, URINE Negative (Negative); OPIATE SCREEN, URINE Negative (Negative)
[2020-09-24 16:26] LABS: ANION GAP 6 mmol/L (5-15); CALCIUM 9.3 mg/dL (8.5-10.1); CHLORIDE 99 mmol/L (98-107); CREATININE 0.65 mg/dL (0.55-1.02)
[2020-09-24 16:27] LABS: ALBUMIN 3.8 g/dL (3.4-5.0)
[2020-09-24 16:41] LABS: SALICYLATE LEVEL 3.2 mg/dL (2.8-20.0)
--- NOTE | 2020-09-24 16:48 | NUR ---
PT PROVIDED WITH MEAL TRAY. DENIES FURTHER NEEDS AT THIS TIME
--- NOTE | 2020-09-24 17:36 | NUR ---
ANTONY: PT ON A LEGAL HOLD, MEDICALLY CLEARED, CALLED [facility] FOR REFERRAL
--- NOTE | 2020-09-24 17:37 | NUR ---
PT PROVIDED WITH COFFEE PER REQUEST. NAD AT THIS TIME. SITTER MONITORING FOR SAFETY
--- NOTE | 2020-09-24 18:00 | NUR ---
THROUGHPUT: RECEIVED A BED FROM [place] [id number] AT 2000
[2020-09-24 18:33] VITALS: BP 150/99
--- NOTE | 2020-09-24 18:49 | NUR ---
BEDSIDE REPORT FROM MARITA LYNN, PT CARE TRANSFERRED AT THIS TIME.
[2020-09-24] MEDS ORDERED: LORazepam 1MG TABLET PO ONE (19:00)
--- NOTE | 2020-09-24 19:05 | NUR ---
RN TO BEDSIDE TO DISCUSS NEED FOR COVID SWAB. PT BEGAN SCREAMING WHILE HOLDING NOSE "NO YOU FUCKING CANT, I JUST WANT MY MEDS, YOU ARENT ALLOWED TO SWAB ME". PT NAD, RESTING ON GURNEY, SITTER IN LINE OF SIGHT, SI PRECAUTIONS IN PLACE, APPEARS COMFORTABLE, WCTM. WAITING FOR COVID SWAB TO TRANSFER TO FLOOR.
--- NOTE | 2020-09-24 19:51 | NUR ---
PT STILL REFUSING COVID SWAB, EXPLAINED SHE WILL GET A MORE COMFORTABLE BED IF SHE COOPERATES AND OFFERED COFFEE, PT STILL REFUSING, AMBULATED TO RESTROOM WITH A SMOOTH AND STEADY GAIT. NAD, SI PRECAUTIONS IN PLACE, SITTER IN LINE OF SIGHT. WCTM.
--- NOTE | 2020-09-24 20:09 | NUR ---
PT STATED "OKAY JUST SWAB ME", RN WENT TO PERFORM SWAB PT STARTED SCREAMING "NO NO NO NEVERMIND YOU CANT". RN EXPLAINED PROCESS TO PT, PT STILL REFUSED, NAD, SITTER IN LINE OF SIGHT, SI PRECAUTIONS IN PLACE, WCTM.
--- NOTE | 2020-09-24 20:40 | NUR ---
PT TOLERATED COVID SWAB AT THIS TIME, PROVIDED COFFEE, NAD, DENIES ADDITIONAL QUESTIONS OR NEEDS, SI PRECUATIONS IN PLACE, SITTER IN LINE OF SIGHT, WCTM
--- NOTE | 2020-09-24 21:49 | NUR ---
REPORT CALLED TO MELIZA LYNN AT [facility], PT CARE TO BE TRANSFERRED UPON ARRIVAL TO THE FLOOR. PT NAD, RESTING ON GURNEY, STATES SHE TAKES MELATONIN ALL THROUGHOUT THE DAY TO THIS RN AND NO OTHER MEDS, DENIES CPAP WHILE SLEEPING. PT DENIES ADDITIONAL QUESTIONS OR NEEDS AT THIS TIME. SI PRECAUTIONS IN PLACE, SITTER IN LINE OF SIGHT. WCTM.
== END 2020-09-24 16:41 | disposition other institution (70) ==
LOC: EDSEX 13:26 → MERGE 13:26 → EDBD 13:26 → ED 16:40
DX: F30.9 Manic episode, unspecified (principal); Z20.828 Contact with and (suspected) exposure to other viral communicable diseases; F23 Brief psychotic disorder; F22 Delusional disorders; F17.200 Nicotine dependence, unspecified, uncomplicated
CPT/HCPCS: 36415; 80048; 80299; 80307; 80320; 80329; 82040; 84443; 84703; 85025; 87635; 99284; G0480

== ENCOUNTER 2020-09-24 18:55 | Inpatient (IN) | payer MEDICARE ==
[~2020-09-24] VITALS: Ht 167.6 cm; Wt 137.7 kg
[2020-09-24] MEDS ORDERED: DOCUSATE 100 MG CAPSULE PO PRN (19:30)
[2020-09-24] MEDS ORDERED: BISACODYL 10 MG SUPP PR PRN (19:30)
[2020-09-24] MEDS ORDERED: ONDANSETRON ODT 4 MG PO PRN (19:30)
[2020-09-24] MEDS ORDERED: POLYETHYLENE GLYCOL 17 GM PACKET PO PRN (19:30)
[2020-09-24] MEDS ORDERED: ACETAMINOPHEN 325 MG TABLET PO PRN (19:30)
[2020-09-24 22:10] VITALS: BP 153/93
[2020-09-24] MEDS ORDERED: PLEASE ENTER HEIGHT AND WEIGHT MC SCH (22:30)
[2020-09-24 22:37] VITALS: BP 153/93
[2020-09-25] MEDS ORDERED: QUETIAPINE 100MG TABLET PO ONE (09:30)
[2020-09-25] MEDS ORDERED: LORazepam 2 MG/ML, 1ML IM PRN (12:00)
[2020-09-25] MEDS: PALIPERIDONE 3 MG TAB.ER.24 PO SCH (21:00)
[2020-09-26 07:25] VITALS: BP 130/84
[2020-09-26] MEDS: QUETIAPINE 100MG TABLET PO PRN ×2 (16:28→22:51)
[2020-09-26 20:00] VITALS: BP 152/99
[2020-09-26] MEDS: PALIPERIDONE 3 MG TAB.ER.24 PO SCH (21:00)
[2020-09-27 07:10] VITALS: BP 150/86
[2020-09-27] MEDS ORDERED: PALIPERIDONE PALMITATE 234 MG/1.5 ML IM ONE (17:00)
[2020-09-27] MEDS: PALIPERIDONE 3 MG TAB.ER.24 PO SCH (21:15)
[2020-09-28 07:25] VITALS: BP 136/85
[2020-09-28] MEDS: PALIPERIDONE 3 MG TAB.ER.24 PO SCH (21:00)
[2020-09-29] MEDS ORDERED: CHLORPROMAZINE 100MG TAB PO PRN (13:30)
[2020-09-29] MEDS ORDERED: PALIPERIDONE 3 MG TAB.ER.24 ONE (14:19)
[2020-09-29] MEDS: PALIPERIDONE 3 MG TAB.ER.24 PO PRN (14:22)
[2020-09-29] MEDS: FUROSEMIDE 20 MG TABLET PO SCH (17:00)
[2020-09-29] MEDS: LORazepam 1MG TABLET PO PRN (18:47)
[2020-09-29 19:50] VITALS: BP 139/82
[2020-09-29] MEDS: DIVALPROEX 500 MG TAB.ER.24H PO SCH (21:25)
[2020-09-29] MEDS: OXCARBAZEPINE 150 MG TABLET PO SCH (21:26)
[2020-09-30] MEDS: LORazepam 1MG TABLET PO PRN ×3 (05:47→21:08)
[2020-09-30 07:00] VITALS: BP 0/0
[2020-09-30] MEDS: FUROSEMIDE 20 MG TABLET PO SCH ×2 (07:30→17:00)
[2020-09-30] MEDS: POTASSIUM CHLORIDE 20 MEQ TAB.ER.PRT PO SCH (08:00)
[2020-09-30] MEDS: OMEPRAZOLE 20 MG CAPSULE.DR PO SCH (09:00)
[2020-09-30] MEDS: OXCARBAZEPINE 150 MG TABLET PO SCH ×2 (09:00→21:00)
[2020-09-30] MEDS: PALIPERIDONE 3 MG TAB.ER.24 PO PRN (14:43)
[2020-09-30] MEDS: DIVALPROEX 500 MG TAB.ER.24H PO SCH (21:08)
[2020-10-01 07:10] VITALS: BP 121/77
[2020-10-01] MEDS: FUROSEMIDE 20 MG TABLET PO SCH ×3 (07:30→17:33)
[2020-10-01] MEDS: POTASSIUM CHLORIDE 20 MEQ TAB.ER.PRT PO SCH ×2 (08:00→09:39)
[2020-10-01] MEDS ORDERED: PALIPERIDONE PALMITATE 234 MG/1.5 ML IM ONE (08:00)
[2020-10-01] MEDS: OMEPRAZOLE 20 MG CAPSULE.DR PO SCH (09:39)
[2020-10-01] MEDS: OXCARBAZEPINE 150 MG TABLET PO SCH ×2 (09:42→20:44)
[2020-10-01] MEDS ORDERED: PALI3TAB11 PO (13:54)
[2020-10-01] MEDS ORDERED: FURO20TA3 PO (13:54)
[2020-10-01] MEDS ORDERED: OMEP-110 PO (13:54)
[2020-10-01] MEDS ORDERED: DIVA500T4 PO (13:54)
[2020-10-01] MEDS ORDERED: OXCA150T18 PO (13:54)
[2020-10-01] MEDS ORDERED: PALI234D IM (13:54)
[2020-10-01] MEDS ORDERED: POTA20TA6 PO (13:54)
[2020-10-01] MEDS: DIVALPROEX 500 MG TAB.ER.24H PO SCH (20:43)
[2020-10-01] MEDS: LORazepam 1MG TABLET PO PRN (20:43)
[2020-10-02 07:16] VITALS: BP 133/82
[2020-10-02] MEDS: FUROSEMIDE 20 MG TABLET PO SCH ×2 (07:30→08:57)
[2020-10-02] MEDS: POTASSIUM CHLORIDE 20 MEQ TAB.ER.PRT PO SCH ×2 (08:00→08:57)
[2020-10-02] MEDS: OMEPRAZOLE 20 MG CAPSULE.DR PO SCH ×2 (08:58→09:00)
[2020-10-02] MEDS: OXCARBAZEPINE 150 MG TABLET PO SCH ×2 (08:58→09:00)
== END 2020-10-02 14:25 | disposition home or self-care (01) | DRG 885 ==
LOC: 3E 22:11
PROVIDERS: ADMIT Psychiatry & Neurology Psychosomatic Medicine; ATTEND Psychiatry & Neurology Psychosomatic Medicine
DX: F25.0 Schizoaffective disorder, bipolar type (principal); R45.851 Suicidal ideations; E87.1 Hypo-osmolality and hyponatremia; F15.20 Other stimulant dependence, uncomplicated; F11.20 Opioid dependence, uncomplicated; Z68.42 Body mass index [BMI] 45.0-49.9, adult; F17.200 Nicotine dependence, unspecified, uncomplicated; K21.9 Gastro-esophageal reflux disease without esophagitis; F17.210 Nicotine dependence, cigarettes, uncomplicated; E66.9 Obesity, unspecified; Z79.899 Other long term (current) drug therapy; Z88.8 Allergy status to other drugs, medicaments and biological substances
CPT/HCPCS: 93005; J2426